=== PATIENT | female | born 1965 | race Caucasian/White ===

== ENCOUNTER 2022-08-27 08:07 | Observation (INO) ==
--- NOTE | 2022-08-12 13:48 | Anesthesiology Consultation ---
Date of Service August 12, 2022 Assessment & Plan (1) Encounter for pre-operative examination: Plan - check CBC with diff STAT Am DOS. - COVID screening: Per industrial/organizational psychologist on 08/11/2022: Travel screen negative, no known COVID-19 positive contacts or current COVID-19 related symptoms in past 2 weeks. To surgeon's discretion if preop COVID testing is needed. Chart Review Chart Review: Acceptable Risk for Surgery and Patient NOT seen in Pre Admission Testing History Surgery Operation Date: 08/18/22 08:50 Proposed Procedures p Left Breast Total Mastectomy with Left Axillary [place] Lymph Node Biopsy with Viv Freight Broker/Wire Localization (Injection Only NM at 0830) - Miki English, Height/Weight Height: 5 ft 3 in Weight: 69.853 kg Allergies Allergy/AdvReac Type Severity Reaction Status Date / Time morphine AdvReac Mild Vomiting Verified 08/11/22 13:10 Medications Home Medications Medication Instructions Recorded Confirmed Last Taken ascorbic acid (vitamin C) 1,000 mg 1 g PO QAM 02/20/22 08/11/22 02/28/22 06:00 tablet collagen,hydrolysate 500 mg-biotin 1 cap PO QAM 02/20/22 08/11/22 02/28/22 06:00 800 mcg-ascorbic acid 50 mg capsule (Collagen 1500 Plus C) cyanocobalamin (vitamin B-12) 1,000 mcg PO QAM 02/20/22 08/11/22 02/28/22 06:00 1,000 mcg capsule cholecalciferol (vitamin D3) 25 25 mcg PO DAILY 07/07/22 08/11/22 Unknown mcg (1,000 unit) capsule (Vitamin D3) multivitamin 1 tab PO QAM 08/11/22 08/11/22 Unknown Past Medical History Medical History Breast cancer of upper-inner quadrant of left female breast History of chemotherapy last treatment 07/21/22. Infiltrating ductal carcinoma of left breast Newly diagnosed- reason for port placement Migraine Weather related per pt Peripheral neuropathy bilateral feet and hands s/p chemotherapy. Past Family History Family History Mother Uterine cancer Other No family history of adverse response to anesthesia Past Surgical History Surgical History H/O: hysterectomy 2004 or 2006 History of breast biopsy bilateral Hx of wisdom tooth extraction Port-A-Cath in place (03/03/22) Insertion of Right Subclavian Access Port with Fluoroscopy(Right) - Miki English, DO Social History Smoking Status: Former smoker tobacco type: cigarettes Do You Dip or Chew Tobacco: No Smoking End Date: 1984 Hx Alcohol Use: Yes Alcohol type: wine alcohol intake frequency: holidays/special occasions only Hx Substance Use: No substance use type: does not use Lab Results Anesthesia Preop Results Results Anesthesia Widget: WBC 5.71 K/ul (4.8-10.8) 07/20/22 Hgb 9.3 g/dl (12.0-16.0) L 07/20/22 Hct 29.0 % (34.1-44.9) L 07/20/22 Plt 411 K/uL (130-400) H 07/20/22 Na 142 mmol/L (136-145) 07/20/22 K 4.2 mmol/L (3.5-5.1) 07/20/22 Cl 109 mmol/L (98-107) H 07/20/22 CO2 27 mmol/L (21-32) 07/20/22 BUN 20 mg/dl (6-23) 07/20/22 Creat 1.10 mg/dl (0.6-1.2) 07/20/22 Glucose Level 96 mg/dl (70-99(Fasting)) 07/20/22 Blood Type A Negative 07/07/22 Antibody Screen NEGATIVE 07/07/22 Testing Electrocardiogram Date: 03/03/22 NSR, rate 72 bpm Low voltage QRS Echocardiogram Date: 05/22/22 EF 55-60% No LV regional wall motion abnormalities Mild cLVH Type 1 diastolic dysfunction No significant valvular abnormalities Other Testing Chest, abdomen and pelvis CT 07/31/22 CHEST: Thyroid: Imaged portions of the thyroid gland are normal in size and attenuation. A 1.0 cm left lobe nodule is again noted Thoracic aorta: The thoracic aorta is normal in caliber and demonstrates standard 3-vessel arch anatomy. No dissection is seen. Pulmonary vasculature: The pulmonary trunk is normal in caliber. There are no filling defects identified in the central pulmonary vessels to indicate pulmonary embolus. Note that this examination was not protocoled for evaluation of the pulmonary arteries. Heart: A right subclavian central venous infusion port is in place. The heart is top normal in size and without pericardial effusion. Lungs and pleural spaces: Moderate emphysematous changes noted. There is no a irspace consolidation or pleural effusion. The trachea and central airways are clear. Foci of scarring/atelectasis are present at the lung bases. Axillae: Surgical clips are noted in the left axilla. No axillary lymphadenopathy is seen. Bony thorax: Sclerotic bone lesions are unchanged from previous. The largest is seen within the body of T8 and measures 1.3 cm. Additional tiny lesions are seen within the bodies of T4 an T12, as well as the inferior sternum. No new osseous lesion is identified. Soft tissues: Postsurgical change is noted in the left breast. ABDOMEN AND PELVIS: Liver: The contrast-enhanced liver is normal in size, contour, and attenuation. There is no intrahepatic biliary ductal dilatation. The hepatic veins and portal veins are patent. Subcapsular shunt vascularity is noted in the left lobe. Gallbladder: A gallstone in the region of the gallbladder neck measures at least 3 cm. The gallbladder is distended, and the wall appears mildly thickened with faint surrounding infiltration. Stomach and bowel: There is a small hiatal hernia. There is mild colonic diverticulosis without CT evidence of acute diverticulitis. No bowel obstruction is seen. Mild fecal retention is noted throughout the colon. The appendix is well-visualized and normal. Pelvic viscera: The bladder is normal as visualized. The uterus is surgically absent. Small follicles are noted in the left ovary. Skeletal structures: Punctate sclerotic foci are seen within body of L2 and within the left iliac wing. IMPRESSION: 1. There is a large gallstone in the region of the gallbladder neck. The gallbla dder is distended, and appears mildly thick-walled with faint surrounding infiltration. If there is clinical concern for acute cholecystitis a right upper quadrant ultrasound should be obtained. 2. There is no evidence of progressive metastatic disease in the chest, abdomen, or pelvis. 3. Postsurgical change is noted in the left breast and left axilla. 4. Scattered sclerotic bone lesions as above are unchanged from prior studies and may represent bone islands. Metastatic lesions are not excluded and continued attention at follow-up is recommended. 5. Mild emphysema. 6. There is no airspace consolidation or pleural effusion. 7. A left lobe thyroid nodule in unchanged. This was FDG avid on a prior PET examination and if not already performed a fine needle aspiration is recommended. 8. Additional findings as above. PET scan 04/08/22 Head and neck: There is expected physiologic activity within the visualized brain parenchyma at the skull base and the salivary glands. There is a 1.0 cm low-attenuation nodule in the left lobe of the thyroid gland seen on image #60. This is markedly FDG avid with a maximum SUV of 12.8. Thorax: Evaluation of the thorax demonstrates expected physiologic myocardial activity. A 12 mm nodule in the left breast as seen on image #93. This is FDG avid with a maximum SUV of 5.7. There are faintly FDG avid subcentimeter left axillary lymph nodes seen on image #78 and #85. These demonstrate a maximum SUV of 1.2. Abdomen and pelvis: There is expected activity within the liver, spleen, kidneys, renal collecting system, and bladder. Low-level bowel activity is likely within physical limits. Skeletal structures: There is diffusely increased activity throughout the skeletal structures, possibly related to colony-stimulating factors. There are several indeterminant sclerotic lesion is again seen throughout the skeleton. The largest lesion is seen in the body of T8 on image #105 and measures 1.4 cm. Additional insurance verification representative foci are present in T12 on image #136, S1 on image #192, the left pubic ring on image #228, and the left femoral shaft on image #256. These lesions cannot be further assessed due to diffuse bony uptake. Unenhanced CT images: The visualized brain parenchyma the skull base is normal in appearance. The bony orbits are intact and orbital contents are normal as visualized. The paranasal sinuses are clear. The mastoid air cells are well pneumatized. The salivary glands are normal in appearance. A right subclavian central venous infusion port is in place. The heart is normal in size and without pericardial effusion. The thoracic aorta is normal in caliber. There is no mediastinal or hilar adenopathy. A surgical clip is noted in the left axilla. The lungs and pleural spaces are clear noting mild bibasilar atelectasis. There is a large calcified gallstone with no evidence of acute cholecystitis. The unenhanced liver, spleen, adrenal glands, pancreas, and kidneys otherwise grossly unremarkable. The abdominal aorta is normal in course and caliber. There is no bowel obstruction. A normal appendix is seen in the right lower quadrant. There is sigmoid diverticulosis without CT evidence of acute diverticulitis. No lymphadenopathy is seen in the abdomen or pelvis. No intraperitoneal free air is identified and there is no abdominal ascites. The bladder is normal as visualized. The uterus is surgically absent. No adnexal lesion is seen. A fat- containing umbilical hernia is incidentally noted. The bony structures appear intact. IMPRESSION: 1. There is a 1.2 cm FDG avid nodule in the left breast, likely corresponding to the patient's known breast cancer. 2. There are tiny and faintly FDG avid left axillary lymph nodes as above. This likely represents russ disease. 3. Diffusely increased osseous uptake is seen throughout the skeleton, possibly related to colony-stimulating factors. Sclerotic bone lesions are unchanged from recent CT scans and remain pathologically indeterminant. These may represent bone islands and cannot be further assessed on today's examination. 4. There is a 1.0 cm markedly FDG avid left lobe thyroid nodule. Follow-up with a thyroid ultrasound is recommended for further assessment. 5. No additional FDG avid lesions are seen. 6. Cholelithiasis. 7. Additional findings as above.
[~2022-08-27 08:07] MED LIST: LACTATED RINGER'S 1,000 ML IV SCH; LR 15ML/HR IV SCH; ceFAZolin 2000MG 2,000 MG/15 ML SYR IV SCH
[2022-08-27] MEDS ORDERED: ONDANSETRON INJ 2 MG/ML 2 ML VIAL ONE (08:32)
[2022-08-27] MEDS ORDERED: fentaNYL citrate 100 MCG/2 ML VIAL ONE (08:32)
[2022-08-27] MEDS ORDERED: DEXAMETHASONE SOD INJ 4 MG/ML VIAL ONE (08:32)
[2022-08-27] MEDS ORDERED: MIDAZOLAM HCL 1 MG/ML 2ML VIAL ONE (08:32)
[2022-08-27] MEDS ORDERED: PROPOFOL IV EMULSION 10 MG/ML 20 ML VIAL IV ONE (08:32)
[2022-08-27] MEDS ORDERED: LIDOCAINE 2% MPF LOCAL 5 ML VIAL INFIL ONE (08:32)
[2022-08-27] MEDS ORDERED: BUPIVACAINE/EPINEPHRINE 0.25% 1:200,000 30 ML VIAL ONE (09:05)
[2022-08-27] MEDS ORDERED: ISOSULFAN BLUE 10 MG/ML VIAL 5 ML ONE (09:05)
[2022-08-27 09:13] LABS: Basophils # (auto) 0.06 K/uL (0-0.2); Basophils % (auto) 0.8 %; Eosinophils % (auto) 1.3 %; Hematocrit (blood only) 33.5 % (34.1-44.9); Hemoglobin 11.5 g/dl (12.0-16.0); Immature Granulocytes # (auto) 0.03 K/uL (0.00-0.02); Immature Granulocytes % (auto) 0.4 %; Lymphocytes # (auto) 1.45 K/uL (1.2-3.4); Lymphocytes % (auto) 19.4 %; Mean Corpuscular Hemoglobin 33.8 pg (25.0-34.0); Mean Corpuscular Hgb Conc 34.3 g/dL (32.0-36.0); Mean Corpuscular Volume 98.5 fL (80.0-100.0); Mean Platelet Volume 10.4 fL (9.4-12.3); Monocytes # (auto) 0.78 K/uL (0.24-0.82); Monocytes % (auto) 10.4 %; Neutrophils # (auto) 5.06 K/uL (1.4-6.5); Neutrophils % (auto) 67.7 %; Platelet Count 305 K/uL (130-400); RDW Coefficient of Variation 13.2 % (11.5-14.5); RDW Standard Deviation 47.7 fL (36.4-46.3); White Blood Count 7.48 K/ul (4.8-10.8)
[2022-08-27] MEDS ORDERED: ATROPINE SULFATE 0.1 MG/ML 10ML SYR IV PRN (09:36)
[2022-08-27] MEDS ORDERED: LABETALOL HCL IV 5 MG/ML 20ML IV PRN (09:36)
[2022-08-27] MEDS ORDERED: HYDROmorphone INJ 1 MG/ML SYRINGE IV PRN (09:36)
[2022-08-27] MEDS ORDERED: fentaNYL citrate 100 MCG/2 ML VIAL IV PRN (09:36)
[2022-08-27] MEDS ORDERED: ePHEDrine sulfate 50 MG/ML AMP IV PRN (09:36)
[2022-08-27] MEDS ORDERED: NALOXONE HCL 0.4 MG/1 ML VIAL/CARP IV PRN (09:36)
[2022-08-27] MEDS ORDERED: PROMETHAZINE HCL 12.5 MG in SODIUM CHLORIDE 0.9% 50 ML IV PRN (09:36)
[2022-08-27] MEDS ORDERED: FLUMAZENIL 0.1 MG/1 ML 10 ML VIAL IV PRN (09:36)
[2022-08-27] MEDS ORDERED: ONDANSETRON INJ 2 MG/ML 2 ML VIAL IV PRN ×2 (09:36→16:52)
--- NOTE | 2022-08-27 09:50 | History & Physical Bridge Note ---
Date of Service August 27, 2022 History & Physical Bridge Note I have examined the patient, reviewed the History & Physical and in the interval since the performance of the History & Physical I have noted the following changes of clinical significance: no changes noted
--- NOTE | 2022-08-27 10:28 | Nuclear Medicine Report ---
LEFT BREAST RADIOTRACER INJECTION FOR LYMPHOSCINTIGRAPHY CLINICAL HISTORY: C50.212. Left breast cancer. COMPARISON STUDY: Left mammogram August 12, 2022. PROCEDURE: Patient presents today for left breast lymphoscintigraphy. The procedure, risks and benefi ts were discussed with the patient and informed consent was obtained. The procedure was performed by Dr. Uribe following a timeout. Skin of the left breast was prepped in typical fashion. A total of 491.79 uCi of Lymphoseek was injected in 5 intradermal aliquots within the left periareolar distribu tion at 8:30 AM on August 27, 2022. No imaging was requested at this time. Patient tolerated the proc edure well and no immediate complications were evident. IMPRESSION: Left breast radiotracer injection for lymphoscintigraphy. ACT 112: Negative or not required by law. Electronically signed by: Jose Maria Uribe M.D. 08/27/2022 10:25 AM
[2022-08-27] MEDS ORDERED: KETOROLAC 30 MG/ML VIAL ONE (12:15)
--- NOTE | 2022-08-27 13:22 | Operative Report ---
PG Post Operative Report Pre & Post Diagnosis Operation Date: 08/27/22 10:00 Pre-Op Diagnosis: Left Breast Cancer status post neoadjuvant chemotherapy Post-Op Diagnosis: Left Breast Cancer status post neoadjuvant chemotherapy I identified the patient and participated in the time-out.: Yes Procedure Operation Date: 08/27/22 10:00 Actual Procedures p Left Breast Total Mastectomy with Left Axillary [place] Lymph Node Biopsy with Ivv Saw Filer (Left) - Miki English DO Surgeon Miki English, Beaver Trapper None Estimated Blood Loss 25 Findings See Below Biopsy clip and left breast calcifications within the mastectomy specimen upon radiography Viv resistance machine welder setter reflector and biopsy clip within the first left axillary sentinel lymph node upon radiography Specimens A. Left Breast, Short Stitch Superior, Long Stitch Lateral B. Left Axillary [place] Lymph Node number 1, blue 265 C. Left Axillary [place] Lymph Node number 2, 1401 Drains 19 [place] Miki drain Anesthesia Type General Complications none Disposition Disposition: Recovery Room Indications 56-year-old female with left breast invasive ductal carcinoma, positive left axillary lymph node status post neoadjuvant chemotherapy Description of Procedure The patient was brought to the OR and placed in the supine position with both arms abducted. At this time she underwent general endotracheal anesthesia without any problems. She was given appropriate pre-operative antibiotics. Lymphazurin was injected in a periareolar manner prior to skin prep. Her left chest and axilla were prepped and draped in the usual sterile fashion. Timeout was called. The procedure was verified as left total Mastectomy with left axillary sentinel lymph node biopsy. Surgical, anesthesia and nursing teams agreed and the procedure was begun. A transverse elliptical incision was made on the left breast to include the nipple areolar complex. This was carried down the the subcutaneous tissue with electrocautery. At this point skin flaps were raised with electrocautery superiorly to the clavicle, medially to the sternum, inferiorly to the inframammary fold, and laterally to the latissimus. The breast tissue was then removed from the pectoralis major muscle along the with fascia. The breast was then transected laterally and sent of as specimen. Upon radiography the mastectomy specimen revealed the previous biopsy clip as well as the numerous pleomorphic calcifications that were seen on preop imaging. At this point our attention was turned to the left axilla for the sentinel lymph node biopsy. The neoprobe was placed into the axilla and a hot and blue node was found and count was 265. This was excised sharply and sent as specimen. The Viv resistance machine welder setter probe was placed on the specimen and the Viv resistance machine welder setter reflector was within this first axillary lymph node. The specimen was radiographed to confirm the Viv resistance machine welder setter reflector as well as the previous biopsy clip. There was still very high baseline activity after removal of this first lymph node. At this point one other lymph node was found using the neoprobe. Second was hot but not blue and count was 1401. Placing the neoprobe in the axilla at this point revealed a count of 12. At this time the incision was irrigated until clear. Hemostasis was achieved using electrocautery. Hemostasis was complete. A #19 [place] Miki drain was introduced through a stab incision laterally on the lower skin flap. It was placed along the inferior and superior skin flap. At this time the incision was closed using 3-0 Vicryl suture at the deep dermal layer and 4-0 Monocryl in a running subcutaneous fashion in the skin. Dermabond Prineo dressing was applied. Sterile dressing was then placed over this and surgical bra. The patient was then awakened from anesthesia and extubated having remained stable throughout the entire case. Needle and sponge count were correct x 2. I attest to the content of the Intraoperative Record and any orders documented therein. Any exceptions are noted below.
--- NOTE | 2022-08-27 13:22 | Post Operative Brief Note ---
PG Immediate Post Op with CF Date of Surgery August 27, 2022 Pre & Post Diagnosis Operation Date: 08/27/22 10:00 Pre-Op Diagnosis: Left Breast Cancer status post neoadjuvant chemotherapy Post-Op Diagnosis: Left Breast Cancer status post neoadjuvant chemotherapy I identified the patient and participated in the time-out.: Yes Procedure Operation Date: 08/27/22 10:00 Actual Procedures p Left Breast Total Mastectomy with Left Axillary [place] Lymph Node Biopsy with Viv Employee Relations Advisor (Left) - Miki English DO Surgeon Miki English DO Saw Maker None Estimated Blood Loss 25 Findings See Below Biopsy clip and left breast calcifications within the mastectomy specimen upon radiography Viv community development aide reflector and biopsy clip within the first left axillary sentinel lymph node Specimens Specimen Description: A. Left Breast, Short Stitch Superior, Long Stitch Lateral B. Left Axillary [place] Lymph Node number 1, blue 265 C. Left Axillary [place] Lymph Node number 2, 1401 Drains Miki Drain (19fr) Anesthesia Type General Complications none Disposition Disposition: Recovery Room
--- NOTE | 2022-08-27 15:05 | Mammography Report ---
SPECIMEN LEFT BREAST: 08/27/2022 CLINICAL HISTORY: Status post left breast mastectomy and left axillary excision. COMPARISON: Comparison is made to exams dated: 08/12/2022 mammogram, 08/12/2022 localization, 2021 ultrasound, 07/09/2022 mammogram, 02/09/2022 ultrasound biopsy, and 02/09/2022 mammogram - [facility]. Findings: A radiograph was performed of the left mastectomy specimen. The ribbon shaped biopsy clip and extensive pleomorphic calcifications are seen within the specimen. A radiograph was performed of the left axillary surgical specimen. The localized left axillary lymph node with associated biopsy clip and Viv senior oracle developer reflector are located within the specimen. Results were discussed with Dr. Vinay koroma over the telephone in the operating room. IMPRESSION: SPECIMEN The imaged left axillary specimen contains the left axillary lymph node, biopsy clip, and reflector. The left mastectomy specimen contains the biopsy clip and extensive pleomorphic calcifications. Lee Ann Matos M.D. /:08/27/2022 12:30:22 Auto Carrier Driver: OR Technologist, [facility]
--- NOTE | 2022-08-27 15:23 | Anesthesiology Progress Note ---
Date of Service August 27, 2022 Anesthesia Post Procedure Vital Signs Vital Signs: Temp Pulse Resp BP Pulse Ox O2 Del Method O2 Flow Rate 08/27/22 15:00 36.4 C L 89 12 121/72 96 Room Air 08/27/22 14:30 86 11 L 124/77 95 Room Air 08/27/22 14:00 36.1 C L 82 17 122/84 97 Room Air 08/27/22 13:50 82 13 126/79 96 Room Air 08/27/22 13:40 83 14 125/83 97 Room Air 08/27/22 13:30 36 C L 82 15 126/73 100 Oxymask 9 08/27/22 09:01 36.9 C 92 H 16 100/68 96 Room Air Pain Intensity Left Breast: Pain Intensity: 3 Transfer of Care Handoff Completed per policy Notes Mental Status: alert / awake / arousable Patient Amnestic to Procedure: Yes Nausea / Vomiting: adequately controlled Pain: adequately controlled Airway Patency, RR, SpO2: stable & adequate BP & HR: stable & adequate Hydration State: stable & adequate Anesthetic Complications: no major complications apparent
[2022-08-27] MEDS ORDERED: MoRPHine SULFATE 2 MG/ML CARP IV PRN (16:52)
[2022-08-27] MEDS ORDERED: MoRPHine SULFATE 4 MG/ML 1 ML CARP\\VIAL IV PRN (16:52)
[2022-08-27] MEDS ORDERED: oxyCODONE HCL IR 5 MG TAB (IMMEDIATE RELEASE) PO PRN ×2 (16:52)
[2022-08-27] MEDS: LACTATED RINGER'S 1,000 ML IV SCH (17:32)
[2022-08-27] MEDS: ACETAMINOPHEN 325 MG TAB PO PRN (17:34)
[2022-08-28] MEDS: ACETAMINOPHEN 325 MG TAB PO PRN ×2 (03:00→08:51)
[2022-08-28] MEDS: LACTATED RINGER'S 1,000 ML IV SCH (05:36)
[2022-08-28 06:43] LABS: Basophils # (auto) 0.06 K/uL (0-0.2); Basophils % (auto) 0.6 %; Eosinophils # (auto) 0.05 K/uL (0-0.50); Eosinophils % (auto) 0.5 %; Hematocrit (blood only) 29.5 % (34.1-44.9); Hemoglobin 9.9 g/dl (12.0-16.0); Immature Granulocytes # (auto) 0.07 K/uL (0.00-0.02); Immature Granulocytes % (auto) 0.7 %; Lymphocytes # (auto) 1.56 K/uL (1.2-3.4); Lymphocytes % (auto) 15.2 %; Mean Corpuscular Hemoglobin 34.6 pg (25.0-34.0); Mean Corpuscular Hgb Conc 33.6 g/dL (32.0-36.0); Mean Corpuscular Volume 103.1 fL (80.0-100.0); Mean Platelet Volume 10.5 fL (9.4-12.3); Monocytes # (auto) 1.31 K/uL (0.24-0.82); Monocytes % (auto) 12.8 %; Neutrophils # (auto) 7.21 K/uL (1.4-6.5); Neutrophils % (auto) 70.2 %; Platelet Count 266 K/uL (130-400); RDW Coefficient of Variation 13.2 % (11.5-14.5); RDW Standard Deviation 50.3 fL (36.4-46.3); Red Blood Count 2.86 M/uL (3.93-5.22); White Blood Count 10.26 K/ul (4.8-10.8)
[2022-08-28 07:03] LABS: BUN Creatinine Ratio 19.8 (10-20); Calcium 8.3 mg/dl (8.5-10.1); Creatinine Clr Calc Pharmacy 47.6 ml/min; Est GFR (African American) 60.1 ml/min; Est GFR (Non-African American) 51.9 ml/min; Potassium 3.8 mmol/L (3.5-5.1)
--- NOTE | 2022-08-28 08:28 | Surgery Progress Note ---
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 no signs of hematoma. SYMONE drain serosang-45cc documented Pain controlled on current regimen Will check on later today and anticipate discharge to home with SYMONE drain Dispo instructions reviewed, f/u in clinic when drain meets requirements for removal Admission and Anticipated Discharge Date Admission Date: August 27, 2022 Supervising Physician Co-Signing Physician Notes I personally saw and evaluated the patient with Angelique Castellanos PA-C and agree with the assessment and plan. 56-year-old female postoperative day 1 left total mastectomy with left axillary sentinel lymph node biopsy She is doing well overall and her pain is manageable She has no signs of hematoma on exam today and the drain is only put out 45ml/12 hours If she tolerates her breakfast and is moving around okay with her pain managed, she can be discharged home with follow-up in 1 week with me in the office Subjective Patient is doing well. Pain is managebale. Tolerating diet. Physical Exam Physical Exam: awake/alert, no distress Cardiovascular: Rate/Rhythm: regular rate Chest (Breasts): Additional Comments: surgical dressings c/d/i with no obvious signs of hematoma. SYMONE drain serosang (45cc) documented. wearing surgical bra Results & Data ([facility]) Vital Signs (Past 12 Hours) Vital Signs Temp Pulse Pulse Resp BP Pulse Ox Pulse Ox 08/28/22 08:05 36.5 C 80 14 99/66 L 96 08/27/22 22:00 08/27/22 22:00 97 08/28/22 03:08 36.7 C 78 16 96/60 L 97 08/27/22 22:22 36.7 C 87 16 90/58 L 95 O2 Del Method O2 Del Method 08/28/22 08:05 Room Air 08/27/22 22:00 Room Air 08/27/22 22:00 Room Air 08/28/22 03:08 Room Air 08/27/22 22:22 Room Air PG Care Time/CCT Total # of Minutes Spent Total Time Spent with Patient: Total time spent is greater than 50% in coordination of care (as documented) at patient's floor/unit and/or counseling patient: Coding Level of Care Code None Diagnoses 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
--- NOTE | 2022-08-28 10:36 | Discharge Summary ---
Date of Service August 28, 2022 Principal Diagnosis left breast cancer left breast mastectomy left sentinel lymph node biopsy Discharge Exam awake/alert, no distress Respiratory normal respiratory effort Cardiovascular Rate/Rhythm: regular rate Chest (Breasts) Additional Comments: surgical dressings c/d/i. no signs of hematoma. 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 English. She tolerated the procedure well, see op note for full details. Post op she was transferred to the med/surg unit in stable condition with a SYMONE drain. Diet was advanced as tolerated. Pain controlled on prn medications. On POD#1 she was tolerating a diet, pain manageable, and surgical dressings c/d/i. Surgical bra in place. SYMONE drain with serosanguineous output and RN provided drain teaching with patient. She was deemed stable for discharge to home with plans to follow up in clinic within 1 week, or sooner if drain met requirements for removal. Total Time Total Time Spent Total Time Spent (In Minutes): 15 Discharge Plan Discharge Items Patient Disposition: Home - Self-Care Reason For Visit: MASTECTOMY Discharge Diagnosis: left breast mastectomy and sentinel lymph node biopsy Activity: Per Instructions section Lifting: No more than 10 pounds Bathing Comment: keep incisions dry until further instructed by the surgeon Exercise/Sports: Wait until after follow-up appointment Driving/Machine Use: wait until cleared by surgeon Non-emergency contact: Surgeon Call non-emergency contact if: you have any medication questions, your symptoms worsen, your pain is not controlled, your pain is concerning for you, you have a fever, your temperature is above 101.5, your wound has increased redness, your wound has increased drainage and your wound pain has increased Follow-up/Referrals: Miki English DO [Physician] - 09/03/22 1:00 pm (please call to schedule follow up in clinic within 1 week) Vielka Bonner PA-C [Primary Care Provider] - Diet: Regular Addtl Attending Provider Instructions: You have a surgical drain in place that will be removed at one of your follow up appointments. Please care for the drain as you have been instructed prior to discharge. Empty drain 2-3x/daily and record. If <30cc over 24 hours for 2-3 days in a row you may call the office to inquire for possible removal. Please keep a gauze dressing over incisions and wear a supportive undergarment such as the surgical bra or a compressive bra- sports bra. Keep incisions dry until you are seen by the surgeon. You may purchase Tylenol and/or Ibuprofen over the counter if needed for additional pain control. Take per manufacturers instructions Pending Studies at Discharge: Yes Studies:: surgical pathology Stand-Alone Forms: My [facility] Medications and DC Order Prescriptions: New oxycodone 5 mg tablet 5 - 10 mg PO [id number] PRN (Reason: pain, for initial therapy, max 6 tabs per day) Qty: 15 0RF Continued ascorbic acid (vitamin C) 1,000 mg tablet 1 g PO QAM cyanocobalamin (vitamin B-12) 1,000 mcg capsule 1,000 mcg PO QAM Collagen 1500 Plus C 500 mg-800 mcg- 50 mg capsule 1 cap PO QAM cholecalciferol (vitamin D3) [Vitamin D3] 25 mcg (1,000 unit) Capsule 25 mcg PO DAILY multivitamin Tablet 1 tab PO QAM Discharge Orders: Discharge Order (Routine); Ordered 08/28/22 Ordered By: Angelique Castellanos Admission Data Admit Date/Time: 08/27/22 12:41 Attending Provider: Miki English Admit Provider: Miki English Primary Care Provider: Vielka Bonner Coding Level of Care Code HOSP INP/OBS DISCH 30 MIN/LESS Diagnoses 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
== END 2022-08-28 16:56 | disposition home or self-care (01) ==
LOC: PACUINP 08:07 → ASU 08:07 → 3E 17:19